=== PATIENT | female | born 1935 | race Caucasian/White ===

== ENCOUNTER 2017-10-09 21:18 | Emergency (ER) | payer OTHER ==
[~2017-10-09] VITALS: Ht 160 cm; Wt 79.4 kg
[2017-10-09 21:22] VITALS: Ht 160 cm; Wt 79.4 kg
[2017-10-09 22:57] VITALS: BP 129/70
== END 2017-10-09 22:57 | disposition home or self-care (01) ==
LOC: ED 21:18
DX: S42.92XA Fracture of left shoulder girdle, part unspecified, initial encounter for closed fracture (principal); I10 Essential (primary) hypertension; W22.8XXA Striking against or struck by other objects, initial encounter; Y93.89 Activity, other specified; Y92.89 Other specified places as the place of occurrence of the external cause; Y99.8 Other external cause status
CPT/HCPCS: Q0092